=== PATIENT | male | born 1975 | race Caucasian/White ===

== ENCOUNTER → 2022-05-28 | Outpatient (CLI) | payer MEDICARE, OTHER | LOC: DX 08:27 | PROVIDERS: ATTEND Internal Medicine Infectious Disease | DX: Z45.2 Encounter for adjustment and management of vascular access device (principal); M86.161 Other acute osteomyelitis, right tibia and fibula; L03.115 Cellulitis of right lower limb | CPT/HCPCS: 36569; 71045 ==